=== PATIENT | female | born 1985 | race Two or more races ===

== ENCOUNTER → 2019-02-11 | Outpatient (CLI) | payer OTHER ==
--- NOTE | 2019-02-12 14:03 | RADIOLOGY REPORT (SQ) ---
EXAM DESCRIPTION: MRI CERVICAL SPINE WITHOUT COMPLETED DATE/TIME: 02/11/2019 9:08 pm REASON FOR STUDY: (M54.2)CERVICALGIA M54.2 CERVICALGIA COMPARISON: None. TECHNIQUE: Sagittal and Axial imaging includes T1, T2, STIR and gradient echo sequences. LIMITATIONS: None. FINDINGS: ALIGNMENT: There is mild cervical kyphosis. VERTEBRAE: There is minimal loss of height of the C5 vertebra. This is not acute. BONE MARROW: Normal. No marrow replacement or reactive changes. DISCS: There is mild disc narrowing from C3-C7. There is decreased T2 signal intensity. HARDWARE: None in the spine. CORD AND BASE OF BRAIN: Normal in size and signal intensity. SOFT TISSUES: No soft tissue masses. C1-C2: No significant spinal stenosis. C2-C3: No significant spinal stenosis or exit foraminal stenosis. C3-C4: There is small midline disc/ osteophyte complex that narrows the anterior CSF space but does n ot deform the cord. No foraminal stenosis. C4-C5: Midline disc/ osteophyte complex narrows the anterior CSF space but does not deform the cord. No foraminal stenosis. C5-C6: Broad-based disc/osteophyte complex asymmetrical to the right slightly flattens the right side of the cord. No foraminal stenosis. C6-C7: Shallow broad-based disc/osteophyte complex with no central canal or foraminal stenosis. C7-T1: No significant spinal stenosis or exit foraminal stenosis. UPPER THORACIC: Incompletely imaged. No significant spinal stenosis or exit foraminal stenosis. OTHER: No other significant finding. IMPRESSION: Disc/osteophyte complexes at 4 levels as described. Most significant findings appear to be at C5-6 with slight flattening of the right side of the cord. TECHNICAL DOCUMENTATION: JOB ID: [id number] [employer]- All Rights Reserved Reading location - IP/workstation name: [email or web address]
== END ==
LOC: RAD 20:26
PROVIDERS: ATTEND Nurse Practitioner
DX: M48.02 Spinal stenosis, cervical region (principal); M25.78 Osteophyte, vertebrae; M54.2 Cervicalgia
CPT/HCPCS: 72141